=== PATIENT | male | born 1975 | race Asian ===

== ENCOUNTER 2020-03-28 18:18 | Emergency (ER) | payer OTHER ==
[~2020-03-28] VITALS: Ht 172.7 cm; Wt 59.9 kg
--- NOTE | ~2020-03-28 | EMS ---
[address] [address] EMS Patient Care Report Name: WILFRIDO JOSUE Room #: REG COREY Fajardo#: [id number] Admission: 03/28/20 Attend Phys: Discharge: Date of : 75 Report #: [id number] THIS REPORT FOR: //name// Report Transmitted: 03/28/2020 17:52 EMS Care Summary [facility]-ACT Incident [id number] @ 03/28/2020 17:26 Incident Location [address] [place] [address] Patient WILFRIDO JOSUE Male, 44 Years 1975 Patient Address [address] [place] [address] Patient History None Reported, Patient Allergies No known allergies, Patient Medications None Reported, Chief Complaint rash and itching on the back of throat Disposition Transported No Lights/[place] Reason Allergic Reaction/Stings Transported To [facility] Narrative Upon arrival pt was sitting on a chair, presented w/o distress. Pt stated he was working on his vehicle outside when a bee came and stung his L ear. Pt had swelling on the L ear and rash all over his body. Pt stated he had itching sensation on the back of his throat and slight of difficulty of breathing. Pt [address] [address] EMS Patient Care Report Name: WILFRIDO JOSUE Room #: MARY JO Fajardo#: [id number] Admission: 03/28/20 Attend Phys: Discharge: Date of : 75 Report #: [id number] received x1 Epi IM .3 mg 1:1000 on scene and then pt walked to the unit. In the unit, IV started and Diphenhydramine 50 mg IV given. Pt started complaining of difficulty of breathing, so Epi 0.3 mg 1:100 IM was given. Pt denied any difficulty of swallow, but stated he felt itching in the back of his throat. Pt received IV fluid NS 300 ml. PT vitals were monitored and remained stable during transport. Pt was assigned to ED room 1, pt was moved to the bed by sheet lift w/o difficulty and then pt care turned over ED nurse. Initial Vitals @17:55P: 111,BP: 76/53, @17:56P: 111,BP: 159/79, @17:47P: 81,R: 18,BP: 149/83,Pain: 0/10,GCS: 15,Temp: 96.4F,SpO2: 100,Revised Trauma: 12,UT Suspected: false @18:00P: 111,R: 18,BP: 160/74,Pain: 0/10,GCS: 15,SpO2: 100,Revised Trauma: 12,UT Suspected: false Assessments @17:35MENTAL:No Abnormalities,SKIN:HEENT:Head/Face: No Abnormalities,Eyes: No Abnormalities,Neck/Airway: No Abnormalities,LUNG SOUNDS:General: No Abnormalities,Left Upper: No Abnormalities,Right Upper: No Abnormalities,Left Lower: No Abnormalities,Right Lower: No Abnormalities,ABDOMEN:General: No Abnormalities,Left Upper: No Abnormalities,Right Upper: No Abnormalities,Left Lower: No Abnormalities,Right Lower: No Abnormalities,PELVIS//GI:No Abnormalities,EXTREMITIES:Left Arm: No Abnormalities,Right Arm: No Abnormalities,Left Leg: No Abnormalities,Right Leg: No Abnormalities,PULSE:NEURO:No Abnormalities, Impression Allergic Reaction Procedures @17:54Epinephrine 1:1 - 0.3 Milligrams (mg) - Intramuscular (IM)Response: Unchanged@17:40Epinephrine 1:1 - 0.3 Milligrams (mg) - Intramuscular (IM)Response: Unchanged@17:49Diphenhydramine - 50 Milligrams (mg) - Intravenous (IV)Response: Unchanged@17:47Normal Saline (.9% NaCl) 300cc (20 ga) Site: Antecubital-LeftResponse: UnchangedSucceeded Timeline 17:24,Call Received 17:24,Psap Call 17:26,Dispatched 17:27,En Route 17:33,On Scene 17:35,At Patient 17:40,Epinephrine 1:1 - 0.3 Milligrams (mg) - Intramuscular (IM),Response: [facility] [address] [place] [address] EMS Patient Care Report Name: WILFRIDO JOSUE Room #: MARY JO Fajardo#: [id number] Admission: 03/28/20 Attend Phys: Discharge: Date of : 75 Report #: [id number] Unchanged 17:47,Normal Saline (.9% NaCl) 300cc 20 ga Site: Antecubital-Left,Response: UnchangedSucceeded, 17:47,BP: 149/83 M,PULSE: 81,RR: 18 R,SPO2: 100 Ox,ETCO2: ,BG: ,PAIN: 0,GCS: 15, 17:49,Diphenhydramine - 50 Milligrams (mg) - Intravenous (IV),Response: Unchanged 17:54,Epinephrine 1:1 - 0.3 Milligrams (mg) - Intramuscular (IM),Response: Unchanged 17:55,BP: 76/53 M,PULSE: 111,RR: R,SPO2: Ox,ETCO2: ,BG: ,PAIN: ,GCS: , 17:55,Depart Scene 17:56,BP: 159/79 M,PULSE: 111,RR: R,SPO2: Ox,ETCO2: ,BG: ,PAIN: ,GCS: , 18:00,BP: 160/74 M,PULSE: 111,RR: 18 R,SPO2: 100 Ox,ETCO2: ,BG: ,PAIN: 0,GCS: 15, 18:05,At Destination 18:32,Call Closed Disclaimer [email or web address] Copyright 2020 [employer] This EMS Care Summary contains data elements from the applicable legal record (which may be displayed differently). It is designed to provide pertinent information for the following purposes: continuity of care, clinical quality, and state data reporting. The complete legal record is available to ED staff and administrators of the receiving hospital in [employer]'s Patient Tracker. All data is provided "as is."
[2020-03-28] MEDS ORDERED: BENADRYL25 MG PO (19:37)
[2020-03-28] MEDS ORDERED: PREDNISONE 20 M20 MG PO (19:37)
[2020-03-28] MEDS ORDERED: EPIPEN 2-P0.3 MG/0.3 IM (19:37)
[2020-03-28] MEDS ORDERED: NAPROSYN500 MG PO (19:42)
[2020-03-28 20:03] VITALS: BP 123/75
== END 2020-03-28 20:03 | disposition home or self-care (01) ==
LOC: ER 18:18
DX: S00.462A Insect bite (nonvenomous) of left ear, initial encounter (principal); E11.9 Type 2 diabetes mellitus without complications; Z91.030 Bee allergy status; W57.XXXA Bitten or stung by nonvenomous insect and other nonvenomous arthropods, initial encounter; Y93.89 Activity, other specified; Y92.89 Other specified places as the place of occurrence of the external cause; Y99.8 Other external cause status